=== PATIENT | female | born 1945 | race African-American/Black ===

== ENCOUNTER 2022-09-27 09:13 | Observation (INO) ==
[2022-09-27] MEDS ORDERED: SODIUM CHLORIDE 0.9% 500 ML IV STA (09:30)
[2022-09-27 09:38] LABS: Basophils % 0.3 % (0.0-0.8); Eosinophils % 0.6 % (0.00-10.9); Hematocrit 33.5 VOL% (35.7-47.0); Hemoglobin 11.5 GM/DL (12.0-16.0); Immature Granulocytes % 0.8 %; Immature Granulocytes Absolute 0.06 #; Lymphocytes # 0.8 10*3/uL (1.4-4.0); Lymphocytes % 11.5 % (21.3-54.2); Mean Corpuscular HGB Conc 34.3 GM/DL (32-36); Mean Corpuscular Volume 90.8 FL (87-102); Mean Platelet Volume 9.3 FL (9.6-12.0); Monocytes # 0.8 10*3/uL (0.11-0.8); Monocytes % 10.5 % (1.7-12.7); Neutrophils % 76.3 % (38.7-73.9); Platelet Count 297 T/CUMM (130-400); Red Blood Count 3.69 MC/CUMM (3.8-5.5); Red Cell Distribution Width 15.1 % (9.3-17.3); White Blood Count 7.2 T/CUMM (4-12)
[2022-09-27 09:52] LABS: Albumin 3.5 G/DL (3.4-5.0); Calcium 8.9 MG/DL (8.5-10.1); Osmolality,Calculated 259.2 MOS/KG (273-304); Potassium 3.9 MMOL/L (3.5-5.1)
[2022-09-27 09:53] LABS: PT Patient Result 10.9 SECS (10.1-12.1)
[2022-09-27 10:01] LABS: Bilirubin,Urine Negative (Negative); Blood, Urine Negative (Negative); Glucose,Urine (UA) Negative (Negative); Ketones,Urine 5 mg/dL (Negative); Mucus,Urine Occasional /LPF (Occasional); Nitrite,Urine Negative (Negative); Protein,Urine 30 mg/dL (Negative); RBC,Urine 1 /HPF (0-4); Urine Appearance CLEAR (Clear); Urine Color Amber (Yellow); Urine Specific Gravity 1.021 (1.001-1.035)
[2022-09-27 10:07] LABS: Barbiturates Screen,Urine Negative (Negative); Benzodiazepines Screen,Urine Negative (Negative); Cannabinoid Screen,Urine Negative (Negative); Opiate Screen,Urine Negative (Negative); Phencyclidine Screen,Urine Negative (Negative)
[2022-09-27] MEDS ORDERED: LACTULOSE 20 GM/30 ML UDCUP PO PRN (11:26)
[2022-09-27] MEDS ORDERED: DOCUSATE SODIUM 100 MG CAPSULE PO PRN (11:26)
[2022-09-27] MEDS ORDERED: SIMETHICONE CHEW 125 MG TABLET PO PRN (11:26)
[2022-09-27] MEDS ORDERED: ONDANSETRON 4 MG/2 ML VIAL IV PRN (11:26)
[2022-09-27] MEDS ORDERED: hydrALAZINE 20 MG/1 ML VIAL IV PRN (11:26)
[2022-09-27] MEDS: NEBIVOLOL 10 MG TABLET PO SCH (15:39)
[2022-09-27] MEDS: ONDANSETRON ODT 4 MG TABLET PO SCH ×2 (15:39→20:11)
[2022-09-27] MEDS: CARBIDOPA/LEVODOPA 10-100 MG TABLET PO SCH ×2 (15:41→20:11)
[2022-09-27] MEDS: LOSARTAN 50 MG TABLET PO SCH (15:42)
[2022-09-27] MEDS: SODIUM CHLORIDE 0.9% 1,000 ML IV SCH (16:11)
[2022-09-27] MEDS: ENOXAPARIN 40 MG/0.4 ML SYRINGE SUBCUT SCH (20:11)
[2022-09-28] MEDS: SODIUM CHLORIDE 0.9% 1,000 ML IV SCH ×3 (03:52→21:00)
[2022-09-28 05:31] LABS: Basophils % 0.1 % (0.0-0.8); Eosinophils % 0.1 % (0.00-10.9); Hematocrit 30.9 VOL% (35.7-47.0); Hemoglobin 10.9 GM/DL (12.0-16.0); Immature Granulocytes % 0.9 %; Immature Granulocytes Absolute 0.09 #; Lymphocytes # 0.7 10*3/uL (1.4-4.0); Mean Corpuscular HGB Conc 35.3 GM/DL (32-36); Mean Corpuscular Volume 90.4 FL (87-102); Mean Platelet Volume 9.5 FL (9.6-12.0); Monocytes # 1.2 10*3/uL (0.11-0.8); Monocytes % 11.9 % (1.7-12.7); Platelet Count 298 T/CUMM (130-400); Red Blood Count 3.42 MC/CUMM (3.8-5.5); Red Cell Distribution Width 15.2 % (9.3-17.3); White Blood Count 9.6 T/CUMM (4-12)
[2022-09-28 05:56] LABS: Calcium 8.6 MG/DL (8.5-10.1); Osmolality,Calculated 265.7 MOS/KG (273-304); Potassium 3.4 MMOL/L (3.5-5.1); Risk Ratio 2.12; Total Protein 6.8 G/DL (6.4-8.2); VLDL Cholesterol 8.2 MG/DL
[2022-09-28] MEDS: ONDANSETRON ODT 4 MG TABLET PO SCH ×2 (09:16→20:58)
[2022-09-28] MEDS: LOSARTAN 50 MG TABLET PO SCH (09:18)
[2022-09-28] MEDS: TERAZOSIN 1 MG CAPSULE PO SCH (09:18)
[2022-09-28] MEDS: PANTOPRAZOLE 40 MG TABLET PO SCH (09:18)
[2022-09-28] MEDS: CARBIDOPA/LEVODOPA 10-100 MG TABLET PO SCH ×2 (09:19→20:57)
[2022-09-28] MEDS: ACETAMINOPHEN 325 MG TABLET PO PRN ×2 (09:19→20:57)
[2022-09-28] MEDS: NEBIVOLOL 10 MG TABLET PO SCH (09:19)
[2022-09-28 10:52] LABS: % Iron Saturation 10.1 % (18-50)
[2022-09-28 11:39] LABS: Folate 6.87 NG/ML (5.38-24.0)
[2022-09-28] MEDS ORDERED: FERRIC GLUCONATE COMPLEX 125 MG in SODIUM CHLORIDE 0.9% 100 ML IV SCH (12:30)
[2022-09-28] MEDS ORDERED: POTASSIUM CHLORIDE 20 MEQ TABLET PO ONE (13:00)
[2022-09-28] MEDS ORDERED: DICLOFENAC SODIUM 50 MG TABLET PO PRN (13:26)
[2022-09-28] MEDS ORDERED: LATANOPROST 0.005% OPH SOLN 2.5 ML BOTTLE BOTH EYES SCH (13:30)
[2022-09-28] MEDS: FERROUS SULFATE 325 MG TABLET PO SCH (16:23)
[2022-09-28] MEDS: ENOXAPARIN 40 MG/0.4 ML SYRINGE SUBCUT SCH (20:58)
[2022-09-28] MEDS: LATANOPROST 0.005% OPH SOLN 2.5 ML BOTTLE BOTH EYES SCH (20:59)
[2022-09-29 05:02] LABS: Basophils % 0.2 % (0.0-0.8); Eosinophils # 0.1 10*3/uL (0.0-0.87); Eosinophils % 0.6 % (0.00-10.9); Hematocrit 28.3 VOL% (35.7-47.0); Hemoglobin 9.6 GM/DL (12.0-16.0); Immature Granulocytes % 0.6 %; Immature Granulocytes Absolute 0.05 #; Lymphocytes # 0.7 10*3/uL (1.4-4.0); Lymphocytes % 8.1 % (21.3-54.2); Mean Corpuscular HGB Conc 33.9 GM/DL (32-36); Mean Corpuscular Volume 91.3 FL (87-102); Mean Platelet Volume 9.4 FL (9.6-12.0); Monocytes # 1.1 10*3/uL (0.11-0.8); Monocytes % 12.3 % (1.7-12.7); Neutrophils % 78.2 % (38.7-73.9); Platelet Count 261 T/CUMM (130-400); Red Cell Distribution Width 15.6 % (9.3-17.3); White Blood Count 9.1 T/CUMM (4-12)
[2022-09-29 05:22] LABS: Calcium 8.3 MG/DL (8.5-10.1); Osmolality,Calculated 270.4 MOS/KG (273-304); Potassium 3.8 MMOL/L (3.5-5.1)
[2022-09-29] MEDS: SODIUM CHLORIDE 0.9% 1,000 ML IV SCH ×2 (06:15→18:42)
[2022-09-29] MEDS: CARBIDOPA/LEVODOPA 10-100 MG TABLET PO SCH ×2 (08:36→21:01)
[2022-09-29] MEDS: TERAZOSIN 1 MG CAPSULE PO SCH (08:38)
[2022-09-29] MEDS: LOSARTAN 50 MG TABLET PO SCH (08:38)
[2022-09-29] MEDS: ONDANSETRON ODT 4 MG TABLET PO SCH ×2 (08:39→21:02)
[2022-09-29] MEDS: FERROUS SULFATE 325 MG TABLET PO SCH ×2 (08:39→18:44)
[2022-09-29] MEDS: PANTOPRAZOLE 40 MG TABLET PO SCH (08:39)
[2022-09-29] MEDS: NEBIVOLOL 10 MG TABLET PO SCH (08:39)
[2022-09-29] MEDS ORDERED: TUBERCULIN SKIN TEST 0.1 ML SYRINGE INTRADERM ONE (11:00)
[2022-09-29] MEDS: ENOXAPARIN 40 MG/0.4 ML SYRINGE SUBCUT SCH (21:02)
[2022-09-29] MEDS: LATANOPROST 0.005% OPH SOLN 2.5 ML BOTTLE BOTH EYES SCH (21:03)
[2022-09-30 05:47] LABS: Basophils % 0.2 % (0.0-0.8); Eosinophils # 0.1 10*3/uL (0.0-0.87); Eosinophils % 1.2 % (0.00-10.9); Hematocrit 27.8 VOL% (35.7-47.0); Hemoglobin 9.6 GM/DL (12.0-16.0); Immature Granulocytes % 0.9 %; Immature Granulocytes Absolute 0.07 #; Lymphocytes # 0.7 10*3/uL (1.4-4.0); Lymphocytes % 8.1 % (21.3-54.2); Mean Corpuscular HGB Conc 34.5 GM/DL (32-36); Mean Corpuscular Volume 90.8 FL (87-102); Mean Platelet Volume 9.6 FL (9.6-12.0); Monocytes # 0.8 10*3/uL (0.11-0.8); Monocytes % 10.1 % (1.7-12.7); Neutrophils % 79.5 % (38.7-73.9); Platelet Count 321 T/CUMM (130-400); Red Blood Count 3.06 MC/CUMM (3.8-5.5); Red Cell Distribution Width 15.4 % (9.3-17.3); White Blood Count 8.2 T/CUMM (4-12)
[2022-09-30 06:01] LABS: Calcium 8.2 MG/DL (8.5-10.1); Osmolality,Calculated 263.5 MOS/KG (273-304); Potassium 3.7 MMOL/L (3.5-5.1)
[2022-09-30 06:28] LABS: Eosinophils 2 % (0-10); Lymphocytes 20 % (20-55); Platelet Estimate Normal; Total Cells Counted 100
[2022-09-30] MEDS: SODIUM CHLORIDE 0.9% 1,000 ML IV SCH (08:51)
[2022-09-30] MEDS: FERROUS SULFATE 325 MG TABLET PO SCH (08:52)
[2022-09-30] MEDS: CARBIDOPA/LEVODOPA 10-100 MG TABLET PO SCH (08:52)
[2022-09-30] MEDS: TERAZOSIN 1 MG CAPSULE PO SCH (08:52)
[2022-09-30] MEDS: ONDANSETRON ODT 4 MG TABLET PO SCH (08:53)
[2022-09-30] MEDS: NEBIVOLOL 10 MG TABLET PO SCH (08:53)
[2022-09-30] MEDS: LOSARTAN 50 MG TABLET PO SCH (08:53)
[2022-09-30] MEDS: PANTOPRAZOLE 40 MG TABLET PO SCH (08:53)
[2022-09-30 11:39] VITALS: BP 179/82
[2022-10-03] MEDS ORDERED: ERGOCALCIFEROL 50,000 UNIT CAPSULE PO SCH (09:00)
== END 2022-09-30 13:20 ==
LOC: N.ED 09:13 → INTOOBSV 11:26 → N.EDINP 11:26 → SUATTDRO 11:26 → N.5E 14:22
PROVIDERS: ADMIT Internal Medicine; ATTEND Internal Medicine

== ENCOUNTER 2022-12-17 11:27 | Inpatient (IN) ==
[2022-12-17] MEDS ORDERED: SODIUM CHLORIDE 0.9% 1,000 ML IV STA ×2 (12:10→13:54)
[2022-12-17 12:50] LABS: Mucus,Urine Occasional /LPF (Occasional)
[2022-12-17 12:52] LABS: PT Patient Result 11.4 SECS (10.1-12.1)
[2022-12-17 12:57] LABS: Basophils % 0.1 % (0.0-0.8); Hematocrit 24.6 VOL% (35.7-47.0); Hemoglobin 7.8 GM/DL (12.0-16.0); Immature Granulocytes % 1.2 %; Immature Granulocytes Absolute 0.26 #; Lymphocytes # 1.7 10*3/uL (1.4-4.0); Mean Corpuscular HGB Conc 31.7 GM/DL (32-36); Mean Corpuscular Volume 94.3 FL (87-102); Mean Platelet Volume 9.5 FL (9.6-12.0); Monocytes # 1.2 10*3/uL (0.11-0.8); Monocytes % 5.3 % (1.7-12.7); NRBC # 0.08 10*3/uL; Neutrophils % 85.4 % (38.7-73.9); Platelet Count 402 T/CUMM (130-400); Red Blood Count 2.61 MC/CUMM (3.8-5.5); Red Cell Distribution Width 18.5 % (9.3-17.3); White Blood Count 21.8 T/CUMM (4-12)
[2022-12-17 13:07] LABS: Albumin 2.6 G/DL (3.4-5.0); Calcium 9.5 MG/DL (8.5-10.1); Osmolality,Calculated 309.1 MOS/KG (273-304); Thyroid Stimulating Hormone 1.35 uIU/ml (0.358-3.74); Total Protein 7.8 G/DL (6.4-8.2)
[2022-12-17 13:10] LABS: Glucose,Urine (UA) Negative (Negative); Protein,Urine 100 mg/dL (Negative); Urine Appearance Cloudy (Clear); Urine Color Yellow (Yellow)
[2022-12-17 13:11] LABS: Bilirubin,Urine Small mg/dL (Negative); Blood, Urine Moderate mg/dL (Negative); Ketones,Urine Trace mg/dL (Negative); Nitrite,Urine Negative (Negative)
[2022-12-17 13:30] LABS: Atypical Lymphocytes Few; Band Neutrophils 1 % (0-10); Lymphocytes 11 % (20-55); Platelet Estimate Normal; Total Cells Counted 100
[2022-12-17] MEDS ORDERED: cefTRIAXone 1,000 MG in SODIUM CHLORIDE 0.9% 100 ML IV STA (13:30)
[2022-12-17] MEDS ORDERED: ALBUTEROL 2.5 MG/3 ML NEB RESP TX PRN (14:13)
[2022-12-17] MEDS ORDERED: ONDANSETRON 4 MG/2 ML VIAL IV PRN (14:14)
[2022-12-17] MEDS ORDERED: SODIUM CHLORIDE 0.9% 1,000 ML IV PRN (14:36)
[2022-12-17] MEDS: SODIUM CHLORIDE 0.9% 1,000 ML IV SCH (16:35)
[2022-12-17] MEDS: LEVOFLOXACIN INJ 750 MG/150 ML PREMIX IV SCH (16:35)
[2022-12-17] MEDS: PANTOPRAZOLE 40 MG VIAL IV SCH (21:05)
[2022-12-18] MEDS: SODIUM CHLORIDE 0.9% 1,000 ML IV SCH ×2 (00:30→02:19)
[2022-12-18 04:26] LABS: Basophils % 0.2 % (0.0-0.8); Eosinophils % 0.1 % (0.00-10.9); Hematocrit 32.5 VOL% (35.7-47.0); Immature Granulocytes % 1.8 %; Immature Granulocytes Absolute 0.35 #; Lymphocytes # 1.5 10*3/uL (1.4-4.0); Lymphocytes % 7.5 % (21.3-54.2); Monocytes % 4.9 % (1.7-12.7); Neutrophils % 85.5 % (38.7-73.9); Platelet Count 323 T/CUMM (130-400); Red Blood Count 3.65 MC/CUMM (3.8-5.5); Red Cell Distribution Width 17.8 % (9.3-17.3); White Blood Count 19.8 T/CUMM (4-12)
[2022-12-18 04:27] LABS: Hemoglobin 10.4 GM/DL (12.0-16.0)
[2022-12-18 04:43] LABS: Calcium 8.8 MG/DL (8.5-10.1); Osmolality,Calculated 317.4 MOS/KG (273-304); Potassium 4.3 MMOL/L (3.5-5.1)
[2022-12-18 05:28] LABS: Albumin 2.4 G/DL (3.4-5.0); Bilirubin,Total 0.5 MG/DL (0.20-1.00); Calcium 8.7 MG/DL (8.5-10.1); Osmolality,Calculated 317.4 MOS/KG (273-304); Potassium 4.6 MMOL/L (3.5-5.1); Total Protein 6.5 G/DL (6.4-8.2)
[2022-12-18] MEDS ORDERED: SODIUM BICARBONATE 50 MEQ/50 ML VIAL IV ONE (08:55)
[2022-12-18] MEDS: SODIUM BICARB INJ 100 MEQ in DEXTROSE 5% 1,000 ML IV SCH ×2 (09:18→20:00)
[2022-12-18] MEDS: CHLORHEXIDINE 0.12% ORAL RINSE 60 ML BOTTLE SWISH/SPIT SCH ×2 (09:22→20:29)
[2022-12-18] MEDS: MULTIVITAMIN (CENTRUM) TABLET PO SCH (09:22)
[2022-12-18] MEDS: POLYETHYLENE GLYCOL POWDER 17 GM PACK PO SCH (09:22)
[2022-12-18] MEDS: ACETAMINOPHEN 500 MG TABLET PO SCH ×2 (09:22→20:29)
[2022-12-18] MEDS: MEGESTROL 400 MG/10 ML UDCUP PO SCH ×2 (09:24→20:29)
[2022-12-18] MEDS: CARBIDOPA/LEVODOPA 10-100 MG TABLET PO SCH ×4 (10:38→20:29)
[2022-12-18] MEDS: PANTOPRAZOLE 40 MG VIAL IV SCH (20:25)
[2022-12-18] MEDS: LATANOPROST 0.005% OPH SOLN 2.5 ML BOTTLE BOTH EYES SCH (20:29)
[2022-12-19 05:06] LABS: Basophils % 0.2 % (0.0-0.8); Eosinophils # 0.1 10*3/uL (0.0-0.87); Eosinophils % 0.7 % (0.00-10.9); Hemoglobin 9.9 GM/DL (12.0-16.0); Immature Granulocytes % 2.5 %; Immature Granulocytes Absolute 0.34 #; Lymphocytes # 1.3 10*3/uL (1.4-4.0); Lymphocytes % 9.4 % (21.3-54.2); Mean Platelet Volume 9.7 FL (9.6-12.0); Monocytes # 0.8 10*3/uL (0.11-0.8); Monocytes % 5.6 % (1.7-12.7); Neutrophils % 81.6 % (38.7-73.9); Platelet Count 267 T/CUMM (130-400); Red Blood Count 3.45 MC/CUMM (3.8-5.5); Red Cell Distribution Width 18.3 % (9.3-17.3); White Blood Count 13.5 T/CUMM (4-12)
[2022-12-19 05:16] LABS: Calcium 8.3 MG/DL (8.5-10.1); Osmolality,Calculated 312.4 MOS/KG (273-304); Phosphorous 1.7 MG/DL (2.5-4.9); Potassium 3.8 MMOL/L (3.5-5.1)
[2022-12-19] MEDS: SODIUM BICARB INJ 100 MEQ in DEXTROSE 5% 1,000 ML IV SCH (07:23)
[2022-12-19] MEDS ORDERED: POTASSIUM PHOSPHATE 15 MMOL in SODIUM CHLORIDE 0.9% 100 ML IV ONE (08:22)
[2022-12-19] MEDS: POLYETHYLENE GLYCOL POWDER 17 GM PACK PO SCH (09:28)
[2022-12-19] MEDS: MULTIVITAMIN (CENTRUM) TABLET PO SCH (09:28)
[2022-12-19] MEDS: DEXTROSE 5% NACL 0.45% 1,000 ML IV SCH ×3 (09:28→23:45)
[2022-12-19] MEDS: CHLORHEXIDINE 0.12% ORAL RINSE 60 ML BOTTLE SWISH/SPIT SCH ×2 (09:28→20:17)
[2022-12-19] MEDS: MEGESTROL 400 MG/10 ML UDCUP PO SCH ×2 (09:28→20:16)
[2022-12-19] MEDS: ACETAMINOPHEN 500 MG TABLET PO SCH ×2 (09:29→20:16)
[2022-12-19] MEDS: CARBIDOPA/LEVODOPA 10-100 MG TABLET PO SCH ×4 (09:29→20:21)
[2022-12-19] MEDS: HEPARIN 5,000 UNIT/1 ML VIAL SUBCUT SCH ×2 (11:57→22:02)
[2022-12-19] MEDS: traMADol 50 MG TABLET PO PRN (12:09)
[2022-12-19] MEDS: LEVOFLOXACIN INJ 750 MG/150 ML PREMIX IV SCH (15:38)
[2022-12-19] MEDS: ZINC OXIDE PASTE 113 GM TUBE TOP SCH ×2 (15:38→20:17)
[2022-12-19] MEDS: PANTOPRAZOLE 40 MG VIAL IV SCH (20:17)
[2022-12-19] MEDS: LATANOPROST 0.005% OPH SOLN 2.5 ML BOTTLE BOTH EYES SCH (20:18)
[2022-12-20 04:31] LABS: Basophils # 0.1 10*3/uL (0.0-0.2); Basophils % 0.4 % (0.0-0.8); Eosinophils # 0.2 10*3/uL (0.0-0.87); Eosinophils % 1.4 % (0.00-10.9); Hematocrit 28.9 VOL% (35.7-47.0); Hemoglobin 9.5 GM/DL (12.0-16.0); Immature Granulocytes % 3.8 %; Immature Granulocytes Absolute 0.52 #; Lymphocytes # 1.5 10*3/uL (1.4-4.0); Lymphocytes % 10.6 % (21.3-54.2); Mean Corpuscular HGB Conc 32.9 GM/DL (32-36); Mean Corpuscular Volume 86.5 FL (87-102); Monocytes # 0.6 10*3/uL (0.11-0.8); Monocytes % 4.6 % (1.7-12.7); Neutrophils % 79.2 % (38.7-73.9); Platelet Count 222 T/CUMM (130-400); Red Blood Count 3.34 MC/CUMM (3.8-5.5); Red Cell Distribution Width 18.2 % (9.3-17.3); White Blood Count 13.8 T/CUMM (4-12)
[2022-12-20 04:57] LABS: Eosinophils 2 % (0-10); Lymphocytes 13 % (20-55); Total Cells Counted 100
[2022-12-20 04:58] LABS: Hypochromia Slight; Microcytosis Slight; Platelet Estimate Adequate
[2022-12-20 06:39] LABS: Calcium 7.6 MG/DL (8.5-10.1); Osmolality,Calculated 287.7 MOS/KG (273-304); Potassium 3.9 MMOL/L (3.5-5.1)
[2022-12-20] MEDS: DEXTROSE 5% NACL 0.45% 1,000 ML IV SCH ×2 (08:01→18:04)
[2022-12-20] MEDS: MEGESTROL 400 MG/10 ML UDCUP PO SCH ×2 (08:43→21:12)
[2022-12-20] MEDS: ZINC OXIDE PASTE 113 GM TUBE TOP SCH ×2 (08:43→21:14)
[2022-12-20] MEDS: MULTIVITAMIN (CENTRUM) TABLET PO SCH (08:43)
[2022-12-20] MEDS: POLYETHYLENE GLYCOL POWDER 17 GM PACK PO SCH (08:44)
[2022-12-20] MEDS: ACETAMINOPHEN 500 MG TABLET PO SCH ×2 (08:44→21:12)
[2022-12-20] MEDS: CARBIDOPA/LEVODOPA 10-100 MG TABLET PO SCH ×4 (08:44→21:13)
[2022-12-20] MEDS: CHLORHEXIDINE 0.12% ORAL RINSE 60 ML BOTTLE SWISH/SPIT SCH ×2 (08:44→21:12)
[2022-12-20] MEDS: traMADol 50 MG TABLET PO PRN ×2 (10:15→21:12)
[2022-12-20] MEDS: INSULIN REGULAR 100 UNIT/ML SUBCUT SCH ×2 (12:39→18:06)
[2022-12-20] MEDS: LACTATED RINGERS 1,000 ML IV SCH (17:40)
[2022-12-20] MEDS ORDERED: propofoL 200 MG/20 ML VIAL IV ONE (18:56)
[2022-12-20] MEDS: PANTOPRAZOLE 40 MG VIAL IV SCH (21:11)
[2022-12-20] MEDS: LATANOPROST 0.005% OPH SOLN 2.5 ML BOTTLE BOTH EYES SCH (21:14)
[2022-12-21] MEDS: DEXTROSE 5% NACL 0.45% 1,000 ML IV SCH ×3 (00:16→19:35)
[2022-12-21] MEDS: INSULIN REGULAR 100 UNIT/ML SUBCUT SCH ×4 (00:49→19:29)
[2022-12-21 05:27] LABS: Basophils # 0.1 10*3/uL (0.0-0.2); Basophils % 0.3 % (0.0-0.8); Eosinophils # 0.2 10*3/uL (0.0-0.87); Hemoglobin 9.2 GM/DL (12.0-16.0); Immature Granulocytes % 4.4 %; Immature Granulocytes Absolute 0.72 #; Lymphocytes # 1.4 10*3/uL (1.4-4.0); Lymphocytes % 8.3 % (21.3-54.2); Mean Corpuscular HGB Conc 32.9 GM/DL (32-36); Mean Corpuscular Volume 86.7 FL (87-102); Mean Platelet Volume 9.9 FL (9.6-12.0); Monocytes # 0.6 10*3/uL (0.11-0.8); Monocytes % 3.9 % (1.7-12.7); Neutrophils % 82.1 % (38.7-73.9); Platelet Count 228 T/CUMM (130-400); Red Blood Count 3.23 MC/CUMM (3.8-5.5); Red Cell Distribution Width 18.2 % (9.3-17.3); White Blood Count 16.3 T/CUMM (4-12)
[2022-12-21 05:51] LABS: Anisocytosis 1+; Atypical Lymphocytes Few; Band Neutrophils 5 % (0-10); Burr Cells Few; Eosinophils 2 % (0-10); Lymphocytes 13 % (20-55); Platelet Estimate Normal; Total Cells Counted 100
[2022-12-21 06:14] LABS: Osmolality,Calculated 287.3 MOS/KG (273-304); Potassium 3.6 MMOL/L (3.5-5.1)
[2022-12-21] MEDS: MULTIVITAMIN (CENTRUM) TABLET PO SCH (08:55)
[2022-12-21] MEDS: CARBIDOPA/LEVODOPA 10-100 MG TABLET PO SCH ×4 (08:55→21:45)
[2022-12-21] MEDS: POLYETHYLENE GLYCOL POWDER 17 GM PACK PO SCH (08:56)
[2022-12-21] MEDS: ACETAMINOPHEN 500 MG TABLET PO SCH ×2 (08:56→21:45)
[2022-12-21] MEDS: MEGESTROL 400 MG/10 ML UDCUP PO SCH ×2 (08:56→21:47)
[2022-12-21] MEDS: ZINC OXIDE PASTE 113 GM TUBE TOP SCH ×2 (08:58→21:55)
[2022-12-21] MEDS: CHLORHEXIDINE 0.12% ORAL RINSE 60 ML BOTTLE SWISH/SPIT SCH ×2 (15:05→21:47)
[2022-12-21] MEDS: LEVOFLOXACIN INJ 750 MG/150 ML PREMIX IV SCH (16:01)
[2022-12-21] MEDS: traMADol 50 MG TABLET PO PRN (16:01)
[2022-12-21] MEDS: LACTATED RINGERS 1,000 ML IV SCH (17:49)
[2022-12-21] MEDS: PANTOPRAZOLE 40 MG VIAL IV SCH (21:50)
[2022-12-21] MEDS: LATANOPROST 0.005% OPH SOLN 2.5 ML BOTTLE BOTH EYES SCH (21:55)
[2022-12-22] MEDS: INSULIN REGULAR 100 UNIT/ML SUBCUT SCH ×3 (00:17→13:02)
[2022-12-22] MEDS: DEXTROSE 5% NACL 0.45% 1,000 ML IV SCH ×2 (02:59→09:33)
[2022-12-22 05:14] LABS: Basophils # 0.1 10*3/uL (0.0-0.2); Basophils % 0.3 % (0.0-0.8); Eosinophils # 0.2 10*3/uL (0.0-0.87); Eosinophils % 1.5 % (0.00-10.9); Hematocrit 26.6 VOL% (35.7-47.0); Hemoglobin 8.7 GM/DL (12.0-16.0); Immature Granulocytes % 4.3 %; Immature Granulocytes Absolute 0.67 #; Lymphocytes # 1.4 10*3/uL (1.4-4.0); Lymphocytes % 8.8 % (21.3-54.2); Mean Corpuscular HGB Conc 32.7 GM/DL (32-36); Mean Corpuscular Volume 87.2 FL (87-102); Mean Platelet Volume 9.6 FL (9.6-12.0); Monocytes # 0.6 10*3/uL (0.11-0.8); Monocytes % 4.1 % (1.7-12.7); Platelet Count 217 T/CUMM (130-400); Red Blood Count 3.05 MC/CUMM (3.8-5.5); Red Cell Distribution Width 17.9 % (9.3-17.3); White Blood Count 15.6 T/CUMM (4-12)
[2022-12-22 05:37] LABS: Band Neutrophils 1 % (0-10); Eosinophils 1 % (0-10); Hypochromia Slight; Lymphocytes 6 % (20-55); Microcytosis 1+; Ovalocytes Slight; Total Cells Counted 100
[2022-12-22 05:38] LABS: Calcium 7.2 MG/DL (8.5-10.1); Platelet Estimate Normal; Polychromasia Slight; Potassium 3.5 MMOL/L (3.5-5.1)
[2022-12-22] MEDS: POLYETHYLENE GLYCOL POWDER 17 GM PACK PO SCH (09:23)
[2022-12-22] MEDS: CARBIDOPA/LEVODOPA 10-100 MG TABLET PO SCH ×2 (09:23→14:40)
[2022-12-22] MEDS: MEGESTROL 400 MG/10 ML UDCUP PO SCH (09:23)
[2022-12-22] MEDS: ACETAMINOPHEN 500 MG TABLET PO SCH (09:23)
[2022-12-22] MEDS: MULTIVITAMIN (CENTRUM) TABLET PO SCH (09:23)
[2022-12-22] MEDS: CHLORHEXIDINE 0.12% ORAL RINSE 60 ML BOTTLE SWISH/SPIT SCH (09:24)
[2022-12-22] MEDS: ZINC OXIDE PASTE 113 GM TUBE TOP SCH (10:20)
[2022-12-22 12:33] VITALS: BP 97/61
== END 2022-12-22 14:45 | DRG 871 ==
LOC: N.ED 11:27 → SUATTDRO 14:13 → N.EDINP 14:13 → N.ICU 15:05 → N.TELEN 12-20 11:10
PROVIDERS: ADMIT Internal Medicine; ATTEND Hospitalist
PROC: EGDWPEG (ICD-10-PCS; 2022-12-20 09:05)